=== PATIENT | female | born 2005 ===

== ENCOUNTER 2023-10-14 10:35 | Outpatient (CLI) | payer OTHER, SELFPAY ==
--- NOTE | ~2023-10-14 | US_ITS ---
US breast LT limited DATE: 10/14/2023 10:59 INDICATION: Left breast mass TECHNIQUE: Targeted real-time and color flow imaging was performed at the area of complaint of left b reast lump at 7:00 2 cm from nipple. COMPARISON: None FINDINGS: There is an oval circumscribed heterogeneous hypoechoic solid 1.6 x 1.8 x 1.3 cm mass at th e area of clinical complaint of breast lump at 7:00 2 cm from nipple. There is through transmission a nd posterior enhancement. The sonographic features are most suggestive of benign fibroadenoma. IMPRESSION: BI-RADS 3: Probably benign finding Recommendation: 6 month targeted left breast ultrasound follow-up at 7:00 Reviewed, dictated and finalized at [facility]. Reviewed, dictated and finalized at [facility].
== END 2023-10-14 10:36 | disposition home or self-care (01) ==
LOC: ANHIMG 10:37
PROVIDERS: PCP Registered Nurse; Visit Provider Registered Nurse
DX: N63.20 Unspecified lump in the left breast, unspecified quadrant (principal); R92.8 Other abnormal and inconclusive findings on diagnostic imaging of breast
CPT/HCPCS: 76642

== ENCOUNTER 2024-07-09 10:07 | Outpatient (CLI) | payer OTHER, SELFPAY ==
--- NOTE | ~2024-07-09 | US_ITS ---
US breast LT limited INDICATION: Left breast lump TECHNIQUE: Dedicated Limited left breast ultrasound COMPARISON: 10/14/2023 FINDINGS: At 6:00, 1 cm from the nipple there is an oval hypoechoic mass with parallel orientation, c ircumscribed margins and subtle posterior acoustic enhancement. This mass measures 1.3 x 1.2 x 0.8 cm compared with 1.8 x 1.7 x 1.3 cm on prior examination. No internal vascularity. IMPRESSION: 1: Decreased size of benign-appearing left breast mass at 6:00, 1 cm from the nipple, most likely jany ign. BI-RADS CATEGORY 3-PROBABLY BENIGN FINDING RECOMMENDATION: 12 month follow-up Limited left breast ultrasound recommended. Reviewed, dictated and finalized at [facility]. R [facility]ANGER IMPRESSION: 1: Decreased size of benign-appearing left breast mass at 6:00, 1 cm from the n ipple, most likely benign. BI-RADS CATEGORY 3-PROBABLY BENIGN FINDING RECOMMENDATION: 12 month follow-up Limited left breast ultrasound recommended.
== END 2024-07-09 10:08 | disposition home or self-care (01) ==
LOC: ANHIMG 10:09
PROVIDERS: PCP Registered Nurse; Visit Provider Registered Nurse
DX: N63.20 Unspecified lump in the left breast, unspecified quadrant (principal)
CPT/HCPCS: 76642